=== PATIENT | female | born 1985 | race Caucasian/White ===

== ENCOUNTER 2018-02-06 13:07 | Emergency (ER) | payer OTHER ==
[~2018-02-06] VITALS: Ht 157.5 cm; Wt 104.0 kg
[2018-02-06 14:40] VITALS: BP 12/76
== END 2018-02-06 15:46 | disposition home or self-care (01) ==
LOC: ER 13:09
DX: R22.0 Localized swelling, mass and lump, head (principal); T45.0X5A Adverse effect of antiallergic and antiemetic drugs, initial encounter; Z88.0 Allergy status to penicillin; Z88.8 Allergy status to other drugs, medicaments and biological substances; Y92.89 Other specified places as the place of occurrence of the external cause
CPT/HCPCS: 99283